=== PATIENT | female | born 1960 | race Caucasian/White ===

== ENCOUNTER 2021-03-22 10:49 | Emergency (ER) | payer BC, SELFPAY ==
[2021-03-22 10:55] VITALS: BP 141/91; PULSE 78; RESP 19; TEMP 37.1; O2SAT 98; BMI 22.7
--- NOTE | 2021-03-22 11:05 | XR_ITS ---
PROCEDURE: XR KNEE LT 3V CLINICAL INDICATION: TWISTED KNEE COMPARISON: No exams were available for comparison FINDINGS: No fracture or dislocation. No lytic or blastic change. There is normal mineralization. The joint spaces are well-preserved. No significant degenerative/arthritic changes. No erosive changes evident. Other findings:None. IMPRESSION: No acute findings. Dictated by: Sameer Al MD 03/22/2021 11:54 Sameer Al MD in [place] 03/22/2021 11:54
--- NOTE | 2021-03-22 11:40 | HMH.EDUTC ---
[facility] [place] Clinical Impression: Knee sprain Qualifiers: Encounter type: initial encounter Involved ligament of knee: unspecified ligament Laterality: left Qualified Code(s): S83.92XA - Sprain of unspecified site of left knee, initial encounter Disposition: Home, Self-Care Condition on Discharge: Good Instructions: How to Use Crutches, Knee Sprain, DI for Knee Sprain, How to Use a Knee Immobilizer Additional Instructions: *weight bearing as tolerated *RICE, Rest the extremity, Ice 15-20 minutes 3-4 times daily, Compress- wear the anthony wrap as discussed as much as possible to help reduce swelling and pain, Elevate the extremity when at rest *Knee immobilizer is for support and help control swelling, use it except in the shower. Be sure that is not to tight but not to loose either *Elevate when resting *Ibuprofen every 6-8 hours as needed for pain an inflammation. If need something more can take Tylenol in between doses of Ibuprofen to help Immediately follow up with your family doctor for new or worsening of symptoms, or no noticeable improvement over the next 3-[address] Stanford office and make appointment Return if needed Straight to ER if any life threatening symptoms Referrals: Provider,MD Ruslan [Primary Care Provider] - As needed Hans Medina MD [Staff Physician] - (Call office for appointment) Forms: Work/School Release Time of Disposition: 11:55 Medical Decision Making - Acosta Inquiry Pt receiving controlled substance: No Acosta was queried for this patient: No Vital Signs: 03/22/21 10:55 03/22/21 11:57 Temperature 98.7 F 98.7 F Temperature Source Oral Pulse Rate 78 Pulse Rate [Right Brachial] 78 Respiratory Rate 19 19 Blood Pressure 141/91 H Blood Pressure [Right Arm] 141/91 H Blood Pressure Mean [Right Arm] 107 Blood Pressure Source [Right Arm] Automatic Cuff Blood Pressure Position [Right Arm] Sitting 02 Sat by Pulse Oximetry 98 Oxygen Delivery Method Room Air - Radiology Data #1 Image(s): Knee Image Reviewed: Yes I reviewed the patient's radiology image Preliminary Findings: No Fracture [place] [facility] [place] - General Stated complaint: ao 03/19/21 injury to Lt knee Time Seen by Provider: 03/22/21 11:40 Mode of Arrival: Ambulatory Source of Information: Patient Limitations: No Limitations Description of Symptoms (Recalled from Triage Doc. by RN): PATIENT STATES SHE TWISTED HER LEFT KNEE WHILE STEPPING OFF OF PORCH MONDAY NIGHT HEENT Symptoms (Recalled from RN notes): No Resp Symptoms (Recalled from RN notes): No Skin Symptoms (Recalled from RN notes): No MS Symptoms (Recalled from RN notes): Yes Functional Status (Recalled from RN notes): WNL - History of Present Illness Provider Complaint: Patient states that she was stepping off her steps on Monday when she twisted her left knee States that she felt like something pulled in the back of her knee States that she has had pain in her left knee ever since when she moves it certain ways and feels like it is going to give out on her - Related Data Home Medications Medication Instructions Recorded Confirmed No Known Home Medications 03/22/21 03/22/21 Allergies Allergy/AdvReac Type Severity Reaction Status Date / Time No Known Allergies Allergy Verified 03/22/21 11:20 - Worker's Comp Is this a Worker's Comp case?: No [facility] History - Hepatitis A Screen Drug use history?: No High risk sexual behaviors?: No History of sexually transmitted infection?: No Currently employed?: No Childcare worker?: No Do you have indoor plumbing?: Yes Do you have electricity?: Yes Attestation statement:: This patient has been screened for Hepatitis A risk factors. I have reviewed the patient's past medical history: Yes - Social History Smoking Status: Current every day smoker Tobacco Type: cigarettes # Packs/Day (cigarettes): 1 Alcohol Intake: never Occupational Status: other ROS Obtained: Yes All systems re
[2021-03-22 11:57] VITALS: BP 141/91; PULSE 78; RESP 19; TEMP 37.1; O2SAT 98
== END 2021-03-22 12:15 | disposition home or self-care (01) ==
PROVIDERS: Emergency Provider Nurse Practitioner
DX: S83.92XA Sprain of unspecified site of left knee, initial encounter (principal); X50.1XXA Overexertion from prolonged static or awkward postures, initial encounter; Y92.018 Other place in single-family (private) house as the place of occurrence of the external cause; F17.210 Nicotine dependence, cigarettes, uncomplicated
CPT/HCPCS: 29505; 73562; 99202; G0463

== ENCOUNTER → 2021-07-22 17:51 | Outpatient (CLI) | payer BC, SELFPAY | PROVIDERS: Visit Provider Nurse Practitioner Family | DX: J02.0 Streptococcal pharyngitis | CPT/HCPCS: 87070; 87077; 87186 ==

== ENCOUNTER 2021-09-11 17:10 | Emergency (ER) | payer OTHER, SELFPAY ==
[2021-09-11 17:11] VITALS: BP 126/82; PULSE 102; RESP 18; TEMP 36.9; O2SAT 96; BMI 22.6
[2021-09-11 18:00] LABS: Basophils # 0.2 K/mm3 (0-0.2); Basophils % 1.7 % (0.1-2.0); Eosinophils # 0.2 K/mm3 (0.0-0.4); Eosinophils % 1.6 % (0.1-12.0); Hematocrit 47.8 % (37.0-47.0); Hemoglobin 16.4 g/dL (12.2-16.2); Lymphocytes # 2.7 K/mm3 (0.7-4.5); Lymphocytes % 26.6 % (10-50); Mean Corpuscular HGB Conc 34.2 g/dL (31.8-35.4); Mean Corpuscular Hemoglobin 32.9 pg (27.0-31.2); Mean Corpuscular Volume 96.2 fl (81-99); Mean Platelet Volume 8.3 fl (7.4-10.4); Monocytes # 0.5 K/mm3 (0.1-1.0); Monocytes % 4.9 % (1.7-9.3); Neutrophils # 6.6 K/mm3 (1.8-7.8); Neutrophils % 65.1 % (37.0-80.0); Platelet Count 381 K/mm3 (142-424); Red Blood Count 4.97 M/mm3 (4.20-5.40); Red Cell Distribution Width 13.5 % (11.5-17.5); White Blood Count 10.1 K/mm3 (4.8-10.8)
[2021-09-11 18:01] LABS: Alanine Aminotransferase 43 U/L (12-78); Albumin Level 5.3 g/dl (3.5-5.0); Albumin/Globulin Ratio 1.4 (1.1-1.8); Alkaline Phosphatase 93 U/L (38-126); Anion Gap 16.8 mEq/L (5-15); Aspartate Amino Transferase 54 U/L (14-36); Bilirubin,Total 1.2 mg/dl (0.2-1.3); Blood Urea Nitrogen 18 mg/dl (7-17); Calcium 10.3 mg/dl (8.4-10.2); Carbon Dioxide 25 mmol/L (22.0-30.0); Chloride 96 mmol/L (98-107); Creatinine Clearance Estimated 61 mL/min (50-200); Estimated Glomerular Filt Rate 57 ml/min (>60); GFR (African American) 69 ML/MIN (>60); Globulin 3.8 g/dL (1.3-3.2); Glucose 102 mg/dl (74-100); Potassium 3.8 mmoL/L (3.5-5.1); Sodium 134 mmol/L (136-145); Total Protein,Serum 9.1 g/dl (6.3-8.2)
[2021-09-11 18:11] VITALS: BP 128/73; PULSE 85; O2SAT 95
--- NOTE | 2021-09-11 19:36 | CT_ITS ---
PROCEDURE INFORMATION: Exam: CT Head Without Contrast Exam date and time: 09/11/2021 7:36 PM Age: 61 years old Clinical indication: Other: Hallucinations TECHNIQUE: Imaging protocol: Computed tomography of the head without contrast. Radiation optimization: All CT scans at this facility use at least one of these dose optimization techniques: automated exposure control; mA and/or kV adjustment per patient size (includes targeted exams where dose is matched to clinical indication); or iterative reconstruction. COMPARISON: No relevant prior studies available. FINDINGS: Brain: No large territorial infarction. No hemorrhage. No mass effect or midline shift. Cerebral ventricles: No ventriculomegaly. Paranasal sinuses: No fluid levels. Mastoid air cells: Visualized mastoid air cells are well aerated. Bones/joints: No acute fracture. Soft tissues: No significant soft tissue abnormality. IMPRESSION: No acute intracranial abnormality.
--- NOTE | 2021-09-11 19:36 | XR_ITS ---
PROCEDURE INFORMATION: Exam: XR Chest Exam date and time: 09/11/2021 7:36 PM Age: 61 years old Clinical indication: Cough and fever; Additional info: Fever, cough TECHNIQUE: Imaging protocol: XR of the chest. Views: 1 view. COMPARISON: No relevant prior studies available. FINDINGS: Lungs: Hyperinflation with relative lucency within the upper lung zones. No lobar consolidation. Pleural spaces: No pneumothorax. Heart/Mediastinum: No cardiomegaly. Bones/joints: Degenerative changes of the shoulders. IMPRESSION: Chronic changes without acute process.
--- NOTE | 2021-09-11 19:38 | HMH.EDGENADL ---
ED Disposition Clinical Impression: UTI (urinary tract infection), Visual hallucinations, Positive urine drug screen Disposition: Home, Self-Care Condition on Discharge: Good Instructions: Anxiety Disorders, DI for Psychosis Prescriptions: Cefdinir [Omnicef 300mg Capsule] 300 mg PO BID #20 cap Transmission Status: Pending to [id number] Quetiapine Fumarate [Seroquel 25mg tablet] 25 mg PO BID #6 tab Transmission Status: Pending to [id number] Referrals: Bailee Barcenas APRN [Primary Care Provider] - - Critical Care Critical Care Time: No Attestation: On 09/11/21, the high probability of a clinically significant, sudden or life threatening deterioration of the following system(s) required my full and direct attention, intervention and personal management. The time I documented below is in addition to time spent performing reported procedures but includes the following listed in this critical care notation. Medical Decision Making - Acosta Inquiry Pt receiving controlled substance: No Vital Signs: 09/11/21 17:11 09/11/21 18:11 Temperature 98.5 F Temperature Source Oral Pulse Rate 85 Pulse Rate [Left Radial] 102 H Respiratory Rate 18 Blood Pressure 128/73 Blood Pressure [Right Arm] 126/82 Blood Pressure Mean [Right Arm] 96 Blood Pressure Source [Right Arm] Automatic Cuff Blood Pressure Position [Right Arm] Sitting 02 Sat by Pulse Oximetry 96 95 Oxygen Delivery Method Room Air Room Air - Lab Data Lab Results 09/11/21 17:20: WBC 10.1, RBC 4.97, Hgb 16.4 H, Hct 47.8 H, MCV 96.2, MCH 32.9 H, MCHC 34.2, RDW 13.5, Plt Count 381, MPV 8.3, Neut % (Auto) 65.1, Lymph % (Auto) 26.6, Bremer % (Auto) 4.9, Eos % (Auto) 1.6, Baso % (Auto) 1.7, Neut # (Auto) 6.6, Lymph # (Auto) 2.7, Bremer # (Auto) 0.5, Eos # (Auto) 0.2, Baso # (Auto) 0.2 09/11/21 17:20: Sodium 134 L, Potassium 3.8, Chloride 96 L, Carbon Dioxide 25, Anion Gap 16.8 H, BUN 18 H, Creatinine 1.00, Estimated Creat Clear 61, Estimated GFR 57 L, Est GFR ( Amer) 69, Glucose 102 H, Calcium 10.3 H, Total Bilirubin 1.2, AST 54 H, ALT 43, Alkaline Phosphatase 93, Total Protein 9.1 H, Albumin 5.3 H, Globulin 3.8 H, Albumin/Globulin Ratio 1.4 09/11/21 17:20: Salicylates < 1.0 L, Acetaminophen < 10 L 09/11/21 17:20: Plasma/Serum Alcohol < 10 09/11/21 19:45: Urine Color Yellow, Urine Appearance Clear, Urine pH 5.5, Ur Specific Worthington 1.010, Urine Protein Negative, Urine Glucose (UA) Negative, Urine Ketones 1+, Urine Blood Negative, Urine Nitrate Negative, Urine Bilirubin Negative, Urine Urobilinogen 0.2, Ur Leukocyte Esterase Trace, Urine RBC Occasional, Urine WBC 5-10, Ur Squamous Epith Cells 3-5, Urine Bacteria 2+ 09/11/21 19:45: Urine Opiates Screen Negative, Urine Methadone Screen Negative, Ur Barbituates Screen Negative, Ur Phencyclidine Scrn Negative, Ur Amphetamines Screen Positive H, U Benzodiazepines Scrn Negative, Urine Cocaine Screen Negative, U Marijuana (THC) Screen Positive H Result diagrams: 09/11/21 17:20 09/11/21 17:20 Orders (Tests/Meds): ED MEDICATIONS Generic Name Dose Route Start Last Admin Trade Name Freq PRN Reason Stop Dose Admin Lactated Ringer's 500 mls @ 999 mls/hr 09/11/21 19:45 09/11/21 20:09 Lactated Ringer's 1000 Ml Bag IV 09/11/21 20:15 999 mls/hr .Q31M KATHI Administration Ceftriaxone Sodium 1 gm/ 50 mls @ 100 mls/hr 09/11/21 21:15 09/11/21 21:07 Sodium Chloride IV 09/25/21 21:14 100 mls/hr Q24H KATHI Administration Discontinued Medications Generic Name Dose Route Start Last Admin Trade Name Freq PRN Reason Stop Dose Admin Hydroxyzine Pamoate 25 mg 09/11/21 19:36 09/11/21 20:09 Hydroxyzine Pamoate 25mg Capsule PO 09/11/21 19:37 25 mg ONCE ONE Administration Quetiapine Fumarate 25 mg 09/12/21 09:00 Quetiapine 25mg Tablet PO 10/12/21 08:59 BID KATHI Quetiapine Fumarate 25 mg 09/11/21 21:12 09/11/21 21:12 Quetiapine 25mg Tablet PO 09/11/21 21:13
[2021-09-11 19:56] LABS: Microscopic, Urine URINE MICROSCOPIC (MICROSCOPIC)
[2021-09-11 20:02] LABS: Appearance,Urine CLEAR (Clear); Bilirubin,Urine Negative (Negative); Blood, Urine Negative (Negative); Color,Urine YELLOW (Yellow); Glucose,Urine (UA) Negative (Negative); Ketones,Urine 1+ (Negative); Leukocyte Esterase,Urine TRACE (Negative); Nitrate,Urine Negative (Negative); PH,Urine 5.5 (5.0-8.5); Protein,Urine Negative (Negative); Urobilinogen,Urine 0.2 EU/dl (0.2)
[2021-09-11 20:10] LABS: Bacteria,Urine 2+ /lpf; RBC,Urine Occasional #/hpf (0-3)
[2021-09-11 20:15] LABS: Barbiturates Screen,Urine Negative ng/ml (<200)
[2021-09-11 20:16] LABS: Benzodiazepines Screen,Urine Negative ng/ml (<200)
[2021-09-11 20:17] LABS: Cannabinoid Screen,Urine Positive ng/ml (<50); Cocaine Screen,Urine Negative ng/ml (<300)
[2021-09-11 20:18] LABS: Methadone Screen,Urine Negative ng/ml (<300)
[2021-09-11 20:19] LABS: Opiate Screen,Urine Negative ng/ml (<300); Phencyclidine Screen,Urine Negative ng/ml (<25)
[2021-09-11 20:57] LABS: Amphetamine/Metha Screen,Urine Positive ng/ml (<1000)
--- NOTE | 2021-09-11 20:57 | PC.NURSE ---
dr grimaldo on phone with dr yap @ this time
[2021-09-11 21:32] LABS: Acetaminophen < 10 ug/ml (10-30); Ethyl Alcohol < 10 mg/dl (0-10); Salicylate < 1.0 mg/dL (2.0-20.0)
[2021-09-11 21:57] VITALS: BP 127/70; PULSE 85; RESP 20; TEMP 36.8; O2SAT 98
== END 2021-09-11 22:01 | disposition home or self-care (01) ==
PROVIDERS: Emergency Provider Student in an Organized Health Care Education/Training Program; PCP Nurse Practitioner Family
DX: N39.0 Urinary tract infection, site not specified (principal); R44.1 Visual hallucinations; F12.951 Cannabis use, unspecified with psychotic disorder with hallucinations; F17.210 Nicotine dependence, cigarettes, uncomplicated; R05.9 Cough, unspecified
CPT/HCPCS: 70450; 71045; 80053; 80305; 80329; 81001; 85025; 87086; 96365; 96366; 99282; J0696

== ENCOUNTER → 2022-03-18 06:18 | Outpatient (CLI) | payer OTHER, SELFPAY ==
[2022-03-17 18:56] LABS: Basophils # 0.1 K/mm3 (0-0.2); Basophils % 1.3 % (0.1-2.0); Eosinophils # 0.2 K/mm3 (0.0-0.4); Eosinophils % 2.3 % (0.1-12.0); Hematocrit 44.5 % (37.0-47.0); Hemoglobin 14.3 g/dL (12.2-16.2); Lymphocytes # 2.6 K/mm3 (0.7-4.5); Lymphocytes % 30.8 % (10-50); Mean Corpuscular HGB Conc 32.1 g/dL (31.8-35.4); Mean Corpuscular Volume 99.7 fl (81-99); Mean Platelet Volume 9.7 fl (7.4-10.4); Monocytes # 0.5 K/mm3 (0.1-1.0); Monocytes % 5.3 % (1.7-9.3); Neutrophils # 5.1 K/mm3 (1.8-7.8); Neutrophils % 60.3 % (37.0-80.0); Platelet Count 413 K/mm3 (142-424); Red Blood Count 4.46 M/mm3 (4.20-5.40); Red Cell Distribution Width 13.7 % (11.5-17.5); White Blood Count 8.5 K/mm3 (4.8-10.8)
[2022-03-17 19:04] LABS: Alanine Aminotransferase 23 U/L (12-78); Albumin Level 4.1 g/dl (3.5-5.0); Albumin/Globulin Ratio 1.4 (1.1-1.8); Alkaline Phosphatase 97 U/L (38-126); Anion Gap 8.8 mEq/L (5-15); Aspartate Amino Transferase 28 U/L (14-36); Bilirubin,Total 0.8 mg/dl (0.2-1.3); Blood Urea Nitrogen 12 mg/dl (7-17); Calcium 9.6 mg/dl (8.4-10.2); Carbon Dioxide 26 mmol/L (22.0-30.0); Chloride 108 mmol/L (98-107); Estimated Glomerular Filt Rate 86 ml/min (>60); GFR (African American) 104 ML/MIN (>60); Globulin 2.9 g/dL (1.3-3.2); Glucose 104 mg/dl (74-100); Potassium 4.8 mmoL/L (3.5-5.1); Sodium 138 mmol/L (136-145)
[2022-03-17 19:08] LABS: Amphetamine/Metha Screen,Urine Negative ng/ml (<1000); Barbiturates Screen,Urine Negative ng/ml (<200)
[2022-03-17 19:09] LABS: Benzodiazepines Screen,Urine Negative ng/ml (<200); Cannabinoid Screen,Urine Negative ng/ml (<50)
[2022-03-17 19:10] LABS: Cocaine Screen,Urine Negative ng/ml (<300)
[2022-03-17 19:11] LABS: Methadone Screen,Urine Negative ng/ml (<300); Opiate Screen,Urine Negative ng/ml (<300)
[2022-03-17 19:12] LABS: Phencyclidine Screen,Urine Negative ng/ml (<25)
[2022-03-17 19:35] LABS: Thyroid Stimulating Hormone 3.62 uIU/mL (0.465-4.68)
== END ==
PROVIDERS: PCP Internal Medicine Adolescent Medicine; Visit Provider Internal Medicine Adolescent Medicine
DX: R79.89 Other specified abnormal findings of blood chemistry (principal); F30.8 Other manic episodes
CPT/HCPCS: 80053; 80305; 84443; 85025

== ENCOUNTER → 2022-04-11 06:24 | Outpatient (CLI) | payer OTHER, SELFPAY ==
[2022-04-11 20:50] LABS: Barbiturates Screen,Urine Negative ng/ml (<200); Benzodiazepines Screen,Urine Negative ng/ml (<200)
[2022-04-11 20:51] LABS: Amphetamine/Metha Screen,Urine Negative ng/ml (<1000)
[2022-04-11 20:52] LABS: Cocaine Screen,Urine Negative ng/ml (<300); Methadone Screen,Urine Negative ng/ml (<300)
[2022-04-11 20:53] LABS: Cannabinoid Screen,Urine Negative ng/ml (<50); Opiate Screen,Urine Negative ng/ml (<300)
[2022-04-11 20:54] LABS: Phencyclidine Screen,Urine Negative ng/ml (<25)
== END ==
LOC: LAB.DROPOF 04-12 06:25
PROVIDERS: PCP Internal Medicine Adolescent Medicine; Visit Provider Internal Medicine Adolescent Medicine
DX: R82.5 Elevated urine levels of drugs, medicaments and biological substances (principal)
CPT/HCPCS: 80305

== ENCOUNTER → 2022-05-04 19:23 | Outpatient (CLI) | payer OTHER, SELFPAY ==
[2022-05-04 20:14] LABS: Amphetamine/Metha Screen,Urine Negative ng/ml (<1000); Benzodiazepines Screen,Urine Negative ng/ml (<200)
[2022-05-04 20:15] LABS: Barbiturates Screen,Urine Negative ng/ml (<200); Cannabinoid Screen,Urine Negative ng/ml (<50)
[2022-05-04 20:16] LABS: Cocaine Screen,Urine Negative ng/ml (<300)
[2022-05-04 20:17] LABS: Methadone Screen,Urine Negative ng/ml (<300); Opiate Screen,Urine Negative ng/ml (<300)
[2022-05-04 20:18] LABS: Phencyclidine Screen,Urine Negative ng/ml (<25)
== END ==
PROVIDERS: PCP Internal Medicine Adolescent Medicine; Visit Provider Internal Medicine Adolescent Medicine
DX: R82.5 Elevated urine levels of drugs, medicaments and biological substances (principal)
CPT/HCPCS: 80305

== ENCOUNTER → 2022-05-31 13:47 | Outpatient (CLI) | payer OTHER, SELFPAY ==
--- NOTE | 2022-05-31 13:54 | MM_ITS ---
PROCEDURE INFORMATION: Exam: US Right Breast, Complete MG Bilateral Diagnostic Breast Tomosynthesis Exam date and time: 05/31/2022 1:46 PM Age: 61 years old Clinical indication: Concern for lump in the right upper outer quadrant. This is her 1st mammogram. TECHNIQUE: Imaging protocol: Complete ultrasound of all four quadrants of the Right breast and the retroareolar regions, including ultrasound of the axilla when performed. Bilateral Diagnostic tomosynthesis and 2D mammography including computer-aided detection (CAD) when performed. Unilateral or bilateral exam. Triangular marker placed at the right clinical lump. COMPARISON: No relevant prior studies available. FINDINGS: MAMMOGRAPHY: Breast composition: The breasts are heterogeneously dense, which may obscure small masses. Mass: Spiculated, approximately 1.0 cm mass with architectural distortion corresponds to the palpable finding in the right breast at 11-12 o'clock posterior 3rd. Architectural distortion: None. Calcifications: No suspicious calcifications. Asymmetric density: None. Skin thickening: None. Axillary adenopathy: None. ULTRASOUND: Right sonography, all 4 quadrants retroareolar and axilla. Corresponding to the palpable and mammographic mass at 11 o'clock 8 cm from the nipple, spiculated solid shadowing mass measuring 1.3 by 1.4 x 1.4 cm. Mild prominence of the retroareolar ducts. Sonographically unremarkable right axillary lymph node. IMPRESSION: Findings highly suspicious for breast cancer corresponding to the palpable finding in the right breast at 11 o'clock, suggest ultrasound-guided biopsy with correlation to ensure that the sonographically placed clip corresponds to the mammographic mass. ASSESSMENT: BI-RADS Category 5: Highly suggestive of malignancy
== END ==
PROVIDERS: PCP Family Medicine; Visit Provider Family Medicine
DX: N63.11 Unspecified lump in the right breast, upper outer quadrant (principal)
CPT/HCPCS: 76641; 77062; 77066; G0279

== ENCOUNTER → 2022-06-09 07:59 | Outpatient (CLI) | payer OTHER, SELFPAY ==
--- NOTE | 2022-06-09 08:07 | US_ITS ---
FINAL REPORT CLINICAL HISTORY: BREAST NODULE UOQ , mass right upper outer quadrant FINDINGS: ULTRASOUND-GUIDED RIGHT BREAST CORE BIOPSY TECHNIQUE: Limited images were obtained to localize region of interest. The right breast was prepped in a routine sterile fashion and locally anesthetized with 1% lidocaine. Standard written informed consent was obtained. The biopsy needle was positioned within the outer periphery of the lesion. A total of 4 passes were made with a 18 gauge core biopsy needle. A biopsy marker clip was deployed in satisfactory position. Postbiopsy mammogram showed postbiopsy changes with clip in satisfactory position. Procedure was well tolerated . CONCLUSION: 1. Technically successful ultrasound guided core biopsy of right breast lesion as above. 2. Biopsy marker clip deployed RECOMMENDATION: Given findings of invasive carcinoma on histopathology, surgical and medical oncology referral recommended Authenticated and ERN
--- NOTE | 2022-06-09 08:08 | MM_ITS ---
FINAL REPORT CLINICAL HISTORY: s/p rt biopsy clip placement. Mass right upper outer quadrant FINDINGS: MAMMOGRAM RIGHT TECHNIQUE: Standard digital 2-D views COMPARISON: Recent diagnostic mammogram DENSITY: There are scattered areas of fibroglandular density FINDINGS: Post biopsy marker clip is noted to be in satisfactory position. Postbiopsy changes are noted. Biopsy marker clip is noted associated with the partially obscured spiculated mass. IMPRESSION: Biopsy marker clip in good position RECOMMENDATION: Given findings of invasive carcinoma on histopathology, surgical and medical oncology referral recommended Authenticated and ERN
== END ==
LOC: RAD 08:00
PROVIDERS: PCP Family Medicine; Visit Provider Family Medicine
DX: N63.10 Unspecified lump in the right breast, unspecified quadrant (principal); R92.8 Other abnormal and inconclusive findings on diagnostic imaging of breast
CPT/HCPCS: 19083; 77065

== ENCOUNTER → 2022-08-29 20:39 | Outpatient (CLI) | payer OTHER, SELFPAY ==
[2022-08-29 21:01] LABS: Basophils # 0.1 K/mm3 (0-0.2); Basophils % 1.4 % (0.1-2.0); Eosinophils # 0.2 K/mm3 (0.0-0.4); Eosinophils % 2.2 % (0.1-12.0); Hematocrit 45.5 % (37.0-47.0); Hemoglobin 14.7 g/dL (12.2-16.2); Lymphocytes # 3.4 K/mm3 (0.7-4.5); Mean Corpuscular HGB Conc 32.3 g/dL (31.8-35.4); Mean Platelet Volume 8.8 fl (7.4-10.4); Monocytes # 0.5 K/mm3 (0.1-1.0); Monocytes % 4.8 % (1.7-9.3); Neutrophils # 5.3 K/mm3 (1.8-7.8); Neutrophils % 55.6 % (37.0-80.0); Platelet Count 426 K/mm3 (142-424); Red Blood Count 4.59 M/mm3 (4.20-5.40); White Blood Count 9.5 K/mm3 (4.8-10.8)
[2022-08-29 21:33] LABS: Chloride 103 mmol/L (98-107); Potassium 4.9 mmoL/L (3.5-5.1); Sodium 138 mmol/L (136-145)
[2022-08-29 21:35] LABS: Blood Urea Nitrogen 8 mg/dl (7-17); Estimated Glomerular Filt Rate 64 ml/min (>60); GFR (African American) 77 ML/MIN (>60)
[2022-08-29 21:36] LABS: Alanine Aminotransferase 28 U/L (12-78); Albumin Level 4.7 g/dl (3.5-5.0); Albumin/Globulin Ratio 1.5 (1.1-1.8); Alkaline Phosphatase 91 U/L (38-126); Anion Gap 12.9 mEq/L (5-15); Aspartate Amino Transferase 33 U/L (14-36); Bilirubin,Total 0.9 mg/dl (0.2-1.3); Calcium 9.6 mg/dl (8.4-10.2); Carbon Dioxide 27 mmol/L (22.0-30.0); Globulin 3.2 g/dL (1.3-3.2); Glucose 111 mg/dl (74-100); Total Protein,Serum 7.9 g/dl (6.3-8.2)
== END ==
PROVIDERS: PCP Internal Medicine; Visit Provider Internal Medicine
DX: C50.411 Malignant neoplasm of upper-outer quadrant of right female breast (principal); Z17.0 Estrogen receptor positive status [ER+]
CPT/HCPCS: 80053; 85025

== ENCOUNTER 2022-09-10 09:18 | Emergency (ER) | payer OTHER, SELFPAY ==
[2022-09-10] VITALS (20 sets, daily range): BP systolic 39–131; BP diastolic 16–89; PULSE 37–129; RESP 17–37; TEMP 36.6–36.9; O2SAT 90–100; BMI 23.3
[2022-09-10 09:49] LABS: Chloride 99 mmol/L (98-107); Eosinophils % 0.7 % (0.1-12.0); Hematocrit 37.9 % (37.0-47.0); Hemoglobin 13.4 g/dL (12.2-16.2); Lymphocytes # 0.3 K/mm3 (0.7-4.5); Lymphocytes % 73.8 % (10-50); Mean Corpuscular HGB Conc 35.4 g/dL (31.8-35.4); Mean Corpuscular Hemoglobin 33.9 pg (27.0-31.2); Neutrophils # 0.1 K/mm3 (1.8-7.8); Neutrophils % 19.6 % (37.0-80.0); Platelet Count 276 K/mm3 (142-424); Red Blood Count 3.95 M/mm3 (4.20-5.40); Red Cell Distribution Width 13.3 % (11.5-17.5)
[2022-09-10 09:50] LABS: Sodium 131 mmol/L (136-145)
[2022-09-10 09:52] LABS: Alanine Aminotransferase 90 U/L (12-78); Alkaline Phosphatase 129 U/L (38-126); Aspartate Amino Transferase 54 U/L (14-36); Bilirubin,Total 1.5 mg/dl (0.2-1.3); Blood Urea Nitrogen 9 mg/dl (7-17); Creatinine Clearance Estimated 75 mL/min (50-200); Estimated Glomerular Filt Rate 73 ml/min (>60); GFR (African American) 89 ML/MIN (>60)
[2022-09-10 09:53] LABS: Albumin Level 4.1 g/dl (3.5-5.0); Albumin/Globulin Ratio 1.4 (1.1-1.8); Calcium 8.8 mg/dl (8.4-10.2); Carbon Dioxide 20 mmol/L (22.0-30.0); Globulin 2.9 g/dL (1.3-3.2); Glucose 244 mg/dl (74-100)
--- NOTE | 2022-09-10 09:55 | PC.NURSE ---
lab reports potassium of 3. notified
[2022-09-10 10:06] LABS: White Blood Count 0.4 K/mm3 (4.8-10.8)
[2022-09-10 10:07] LABS: MANUAL DIFFERENTIAL MANUAL DIFFERENTIAL (MANUAL DIFF)
--- NOTE | 2022-09-10 10:10 | CT_ITS ---
PROCEDURE INFORMATION: Exam: CT Abdomen And Pelvis With Contrast Exam date and time: 09/10/2022 10:22 AM Age: 62 years old Clinical indication: Abdominal pain; Generalized; Additional info: Pain, leukopenia TECHNIQUE: Imaging protocol: Computed tomography of the abdomen and pelvis with contrast. Radiation optimization: All CT scans at this facility use at least one of these dose optimization techniques: automated exposure control; mA and/or kV adjustment per patient size (includes targeted exams where dose is matched to clinical indication); or iterative reconstruction. Contrast material: ISOVUE; Contrast volume: 75 ml; Contrast route: IV; COMPARISON: CR XR CHEST PORTABLE 09/11/2021 7:53 PM FINDINGS: Liver: Normal. No mass. Gallbladder and bile ducts: Normal. No calcified stones. No ductal dilation. Pancreas: Normal. No ductal dilation. Spleen: Normal. No splenomegaly. Adrenal glands: Normal. No mass. Kidneys and ureters: Normal. No hydronephrosis. Stomach and bowel: Massive bowel wall thickening within the terminal ileum, cecum, and ascending colon. Cecal wall measures 2 cm. Prominent adjacent inflammatory changes. Given history of leukopenia, neutropenic enterocolitis (typhlitis) is highly concerning. Alternatively, inflammatory bowel disease such as Crohn's should be considered. Moderate distention of stomach with fluid, and fluid within mildly distended mid esophagus. No proximal small bowel obstruction. Appendix: No evidence of appendicitis. Intraperitoneal space: Mild abdominal and pelvic ascites. Vasculature: Unremarkable. No abdominal aortic aneurysm. Lymph nodes: Unremarkable. No enlarged lymph nodes. Urinary bladder: Unremarkable as visualized. Reproductive: Unremarkable as visualized. Bones/joints: Unremarkable. No acute fracture. Soft tissues: Unremarkable. IMPRESSION: 1. Massive bowel wall thickening within the terminal ileum, cecum, and ascending colon. Cecal wall measures 2 cm. Prominent adjacent inflammatory changes. Given history of leukopenia, neutropenic enterocolitis (typhlitis) is highly concerning. Alternatively, inflammatory bowel disease such as Crohn's should be considered. 2. Moderate distention of stomach with fluid, and fluid within mildly distended mid esophagus. 3. Mild abdominal and pelvic ascites.
--- NOTE | 2022-09-10 10:10 | CT_ITS ---
PROCEDURE INFORMATION: Exam: CT Chest With Contrast; Diagnostic Exam date and time: 09/10/2022 10:22 AM Age: 62 years old Clinical indication: Pain; Chest pressure; Additional info: Pain, leukopenia TECHNIQUE: Imaging protocol: Diagnostic computed tomography of the chest with contrast. Radiation optimization: All CT scans at this facility use at least one of these dose optimization techniques: automated exposure control; mA and/or kV adjustment per patient size (includes targeted exams where dose is matched to clinical indication); or iterative reconstruction. Contrast material: ISOVUE; Contrast volume: 75 ml; Contrast route: IV; COMPARISON: CR XR CHEST PORTABLE 09/11/2021 7:53 PM FINDINGS: Thyroid: Heterogeneous thyroid gland, with rim enhancing nodule in the left lobe measuring 8 mm. Nonemergent ultrasound recommended. Lungs: Unremarkable. No consolidation. No masses. Pleural spaces: Unremarkable. No pneumothorax. No pleural effusion. Heart: Unremarkable. No cardiomegaly. No pericardial effusion. Mediastinal space: Fluid-filled and distended mid esophagus, with fluid distended stomach partially visualized. Lymph nodes: Coarsely calcified subcarinal lymph node. No lymphadenopathy identified. Vasculature: Unremarkable. No aortic aneurysm. Bones/joints: Unremarkable. No acute fracture. Soft tissues: Biopsy markers in the right breast. IMPRESSION: 1. Fluid-filled and distended mid esophagus, with fluid distended stomach partially visualized. 2. Heterogeneous thyroid gland, with rim enhancing nodule in the left lobe measuring 8 mm. Nonemergent ultrasound recommended. COMMENTS: Consistent with the [employer]'s Incidental Findings Committee white paper (J Am Dominik Radiol 2015): In patients aged 35 years and older with an incidental thyroid nodule equal to or greater than 1.[address], MRI or extrathyroidal US, further evaluation with dedicated thyroid US is recommended for patients with normal life expectancy and without comorbidities. For smaller nodules without suspicious features, no further evaluation or follow up is recommended.
--- NOTE | 2022-09-10 10:30 | HMH.EDGENADL ---
Discharge Plan Disposition Patient Disposition: Xfer Short-Term Hosp Condition: Fair Prescriptions Prescriptions: No Action escitalopram oxalate 10 mg tablet 10 mg PO DAILY nicotine [Nicoderm CQ] 21 mg/24 hr patch 24 hour 1 patch transdermal DAILY Qty: 28 0RF sulfamethoxazole-trimethoprim 800-160 mg tablet 1 tab PO BID Qty: 20 0RF codeine-guaifenesin 10-100 mg/5 mL liquid 10 ml PO Q4-6H PRN (Reason: cough) Qty: 120 3RF Referrals Follow up/Referrals: Serjio Hope MD [Primary Care Provider] - See instructions Clinical Impressions Clinical Impression: Neutropenia, Abdominal pain, Enterocolitis Instructions Patient Instructions: DI for Acute Abdominal Pain Discharge ED Provider: Chidi Lyle General Adult HPI General Chief complaint: Abdominal Pain Stated complaint: Kidney pain Time Seen by Provider: 09/10/22 09:35 Mode of Arrival: Ambulatory Source of Information: Patient and Relative Limitations: No Limitations Description of Symptoms (Recalled from ER Triage Doc. by RN): c/o lower back pain that goes into her stomach that started last night. Per daughter pt states that her kidney are shutting down. Daughter states that pt stopped drinking beer before her first chemo tx on Sep 02. Dx with breast CA, 1ml of urine noted in bladder via bladder scanner. History of Present Illness HPI narrative: 62yo F presents to the emergency department secondary to diffuse abdominal pain and right flank pain that began in the middle of the night. Denies previous episodes similar. Patient had right breast lumpectomy with lymph node dissection in June and recently underwent her first round of chemotherapy on September 02. Denies fever. Denies nausea or vomiting. Denies history of kidney stones Related Data Home Medications Medication Instructions Recorded Confirmed escitalopram oxalate 10 mg tablet 10 mg PO DAILY depression 06/01/22 08/09/22 Previous Rx's Medication Instructions Recorded nicotine 21 mg/24 hr daily 1 patch transdermal DAILY #28 ea 08/05/22 transdermal patch (Nicoderm CQ) codeine 10 mg-guaifenesin 100 mg/5 10 ml PO Q4-6H PRN cough #120 mL 08/09/22 mL oral liquid sulfamethoxazole 800 1 tab PO BID #20 tabs 08/09/22 mg-trimethoprim 160 mg tablet Allergies Allergy/AdvReac Type Severity Reaction Status Date / Time No Known Allergies Allergy Verified 08/09/22 15:04 PFSH PFSH Disclaimer: The information contained in this section may have been updated after the patient was seen, as this information can be updated by other users. Medical History Invasive ductal carcinoma of breast Positive urine drug screen Social History Smoking Status: Current every day smoker tobacco type: cigarettes packs per day: 1 alcohol intake: current substance use type: former substance user, marijuana and crack/cocaine current occupational status: employed ([employer]) Travel in the last 8 weeks: None household members: none housing: house ROS Obtained: Yes Systems reviewed as appropriate & no additional complaints except as documented Physical Exam General General appearance: alert Comment: Appears uncomfortable Head Head exam: atraumatic Eye Eye exam: Present normal appearance ENT ENT exam: Present normal exam Neck Neck exam: Present normal inspection Chest Chest inspection: Present normal inspection Respiratory Respiratory exam: Present normal lung sounds bilaterally; Absent respiratory distress, wheezes, stridor or accessory muscle use Cardiovascular Cardiovascular exam: Present regular rate and normal rhythm Abdominal Exam Abdominal exam: Present soft, tenderness and normal bowel sounds; Absent distention, guarding, rebound or rigidity Extremities Exam Extremities exam: Present normal inspection and full ROM Back Exam Back exam: Present normal inspect
[2022-09-10 10:33] LABS: Lymphocytes % 80 % (10-50); Monocytes % 7 % (2-9); Neutrophils % 13 % (42-76); Total Cells Counted 15
[2022-09-10 10:34] LABS: RBC Morphology Normal
[2022-09-10 10:35] LABS: Platelet Estimate Normal
--- NOTE | 2022-09-10 11:05 | PC.NURSE ---
Pt went to the restroom and produced a urine sample
[2022-09-10 11:08] LABS: Microscopic, Urine URINE MICROSCOPIC (MICROSCOPIC)
[2022-09-10 11:15] LABS: Appearance,Urine CLEAR (Clear); Bilirubin,Urine Negative (Negative); Blood, Urine TRACE-L (Negative); Color,Urine YELLOW (Yellow); Glucose,Urine (UA) 1+ (Negative); Ketones,Urine Negative (Negative); Leukocyte Esterase,Urine Negative (Negative); Nitrate,Urine Negative (Negative); Protein,Urine TRACE (Negative); Urobilinogen,Urine 0.2 EU/dl (0.2)
--- NOTE | 2022-09-10 11:18 | PC.NURSE ---
placed call for transfer dr crawford on with Dr Stevens.
--- NOTE | 2022-09-10 11:24 | PC.NURSE ---
spoke with [facility]. states she has been placed on a high priority waiting list. also reports wants an ng tube
[2022-09-10 11:30] LABS: WBC,Urine Occasional #/hpf (0-3)
--- NOTE | 2022-09-10 11:35 | PC.NURSE ---
dr on with [facility]
--- NOTE | 2022-09-10 13:33 | PC.NURSE ---
called [facility] for update still no bed available they will call if any changes
--- NOTE | 2022-09-10 14:28 | PC.NURSE ---
verbal order for 0.5mg od Dilaudid by
[2022-09-10 15:46] LABS: Adenovirus,PCR Not Detected (NotDetected); Bordetella Pertussis Not Detected (NotDetected); Chlamydophila Pneumoniae, PCR Not Detected (NotDetected); Coronavirus 19, PCR Not Detected (NotDetected); Coronavirus 229E Not Detected (NotDetected); Coronavirus NL63 Not Detected (NotDetected); Coronavirus OC43 Not Detected (NotDetected); Coronovirus HKU1,PCR Not Detected (NotDetected); Human Metapneumovirus Not Detected (NotDetected); Influenza A, PCR Not Detected (NotDetected); Influenza AH1, 2009 Not Detected (NotDetected); Influenza AH1, PCR Not Detected (NotDetected); Influenza AH3,PCR Not Detected (NotDetected); Influenza B, PCR Not Detected (NotDetected); Mycoplasma Pneumoniae, PCR Not Detected (NotDetected); Parainfluenza 1, PCR Not Detected (NotDetected); Parainfluenza 2, PCR Not Detected (NotDetected); Parainfluenza 3, PCR Not Detected (NotDetected); Parainfluenza 4, PCR Not Detected (NotDetected); Respiratory Syncytial Virus Not Detected (NotDetected)
--- NOTE | 2022-09-10 16:17 | PC.NURSE ---
placed call to [facility] for follow up on bed placement they advised bed is being cleaned and in process, they should be calling back by end of shift.
--- NOTE | 2022-09-10 17:01 | XR_ITS ---
PROCEDURE INFORMATION: Exam: XR Chest Exam date and time: 09/10/2022 5:19 PM Age: 62 years old Clinical indication: Other: Hypoxia TECHNIQUE: Imaging protocol: Radiologic exam of the chest. Views: 1 view. COMPARISON: CT CHEST W CON 09/10/2022 10:22 AM FINDINGS: Lungs: Unremarkable. No consolidation. Pleural spaces: Unremarkable. No pleural effusion. No pneumothorax. Heart/Mediastinum: Unremarkable. No cardiomegaly. Bones/joints: Unremarkable. Tubes: Enteric tube is past gastroesophageal junction. Tube tip is not visualized. IMPRESSION: No acute findings. Enteric tube grossly in place.
--- NOTE | 2022-09-10 17:01 | XR_ITS ---
PROCEDURE INFORMATION: Exam: XR Abdomen Exam date and time: 09/10/2022 5:19 PM Age: 62 years old Clinical indication: Device placement; Gi device; Nasogastric tube; Additional info: Ng tube placement TECHNIQUE: Imaging protocol: Radiologic exam of the abdomen. Views: Frontal supine view of the abdomen. 1 View. COMPARISON: CT ABDOMEN PELVIS W CON 09/10/2022 10:22 AM FINDINGS: Gastrointestinal tract: Normal. No bowel dilation. Bones/joints: Unremarkable. Tubes:: Nasogastric tube tip is projected over gastric body. IMPRESSION: No acute findings. Nasogastric tube grossly in place.
[2022-09-10 17:03] LABS: Rhinovirus/Enterovirus Detected (NotDetected)
--- NOTE | 2022-09-10 17:05 | PC.NURSE ---
Pt was transferring with Celia Bowles wireless sales manager from the [facility] to the bed when wireless sales manager called out for me, once entered pt was having a near syncopal episode, pt bautista in color, A&O x4 at this time, able to transfer to bed with assistance, Pt stating that she is thirsty. at bs.
--- NOTE | 2022-09-10 17:11 | PC.NURSE ---
pt daughter came to desk advising pt felt syncopal episode , pt assessed she is hypotensive, dr advised he was at bedside. [facility] called with a room advised them she had declined and pt is now going to [facility].
--- NOTE | 2022-09-10 17:21 | PC.NURSE ---
[facility] called, they are to call back with weather check
--- NOTE | 2022-09-10 17:24 | PC.NURSE ---
[facility] advised 20 min eta
--- NOTE | 2022-09-10 17:30 | PC.NURSE ---
verbally ordered levophed for low bp for MAP of 21, at bs
[2022-09-10 17:39] LABS: ABG Base Excess -14.2 mmol/L (-2.4-2.3); ABG HCO3 12.3 mmhg (22.0-26.0); ABG Oxygen Saturation 97 % (90-100); ABG PCO2 26.2 mmhg (35.0-45.0); ABG PH 7.29 mmol/L (7.35-7.45); ABG PO2 99.3 mmhg (80-100); ABG TCO2 13.1 mmhg (23-27); Oxygen 2.5 %; Source LEFT FEMORAL
--- NOTE | 2022-09-10 17:46 | PC.NURSE ---
at bedside preparing to insert central line
--- NOTE | 2022-09-10 18:04 | XR_ITS ---
PROCEDURE INFORMATION: Exam: XR Chest Exam date and time: 09/10/2022 6:18 PM Age: 62 years old Clinical indication: Device placement; Other: Central line placement TECHNIQUE: Imaging protocol: Radiologic exam of the chest. Views: 1 view. COMPARISON: CR XR CHEST PORTABLE 09/10/2022 5:19 PM FINDINGS: Tubes, catheters and devices: Right internal jugular central line tip is projected at atrial caval junction. No pneumothorax. Enteric tube past gastroesophageal junction tip itself not visualized. Lungs: Unremarkable. No consolidation. Pleural spaces: No pleural effusion. No pneumothorax. Heart/Mediastinum: Unremarkable. No cardiomegaly. Bones/joints: Unremarkable. IMPRESSION: Central line and enteric tubes grossly in place. No acute intrathoracic findings identified.
--- NOTE | 2022-09-10 18:07 | P.PCN_ITS ---
[facility] Procedure Note Date: 09/10/22 Time: 18:00 Procedure Note:: Patient hypotensive and not recovering with fluids. Decision made to put in a central line. Informed consent obtained from the patient. Right neck prepped and draped in sterile fashion. Ultrasound probe covered with sterile probe cover and utilized for placement of right IJ central venous catheter. No complications. Patient tolerated procedure well. Post procedure x-ray obtained and shows good placement of central venous line with no sign of pneumothorax.
--- NOTE | 2022-09-10 18:20 | PC.NURSE ---
report called to Meghan BAH at ER
--- NOTE | 2022-09-10 18:31 | PC.NURSE ---
pt left ED with [facility] at this time
--- NOTE | 2022-09-10 18:36 | PC.NURSE ---
Suction container from stomach contents was a volume of 500ml out.
== END 2022-09-10 18:35 | disposition short-term general hospital (02) ==
PROVIDERS: Emergency Provider Family Medicine; PCP Family Medicine
DX: R10.9 Unspecified abdominal pain (principal); D70.9 Neutropenia, unspecified; K52.9 Noninfective gastroenteritis and colitis, unspecified; F17.210 Nicotine dependence, cigarettes, uncomplicated; C50.919 Malignant neoplasm of unspecified site of unspecified female breast; Z92.21 Personal history of antineoplastic chemotherapy
CPT/HCPCS: 71045; 71260; 74018; 74177; 80053; 81001; 82803; 85007; 85025; 87040; 87581; 87632; 87798; 96361; 96365; 96366; 96375; 96376; 99291; C9803; G0390; J2405; J2543; Q9967; U0003; U0005

== ENCOUNTER → 2022-11-07 17:33 | Outpatient (CLI) | payer OTHER, SELFPAY ==
[2022-11-07 17:48] LABS: Microscopic, Urine URINE MICROSCOPIC (MICROSCOPIC)
[2022-11-07 18:03] LABS: Appearance,Urine CLEAR (Clear); Color,Urine DK YELLOW (Yellow); Leukocyte Esterase,Urine Negative (Negative); Nitrate,Urine POSITIVE (Negative); Protein,Urine 2+ (Negative)
[2022-11-07 18:05] LABS: Blood, Urine Negative (Negative); Glucose,Urine (UA) Negative (Negative); Ketones,Urine Negative (Negative); Specific Gravity, Urine 1.025 (1.005-1.030)
[2022-11-07 18:07] LABS: Bilirubin,Urine 1+ (Negative)
[2022-11-07 18:35] LABS: Bacteria,Urine Trace /lpf; Squamous Epithelial Cell,Urine Occasional #/hpf (0-5); WBC,Urine Occasional #/hpf (0-3)
[2022-11-07 18:36] LABS: Calcium Oxalate Crystals,Urine 4+ /lpf
== END ==
PROVIDERS: PCP Family Medicine; Visit Provider Family Medicine
DX: R30.0 Dysuria (principal); B96.1 Klebsiella pneumoniae [K. pneumoniae] as the cause of diseases classified elsewhere; B96.81 Helicobacter pylori [H. pylori] as the cause of diseases classified elsewhere
CPT/HCPCS: 81001; 87086; 87088; 87186

== ENCOUNTER → 2022-11-08 15:33 | Outpatient (CLI) | payer OTHER, SELFPAY ==
[2022-11-08 15:57] LABS: Basophils # 0.1 K/mm3 (0-0.2); Basophils % 0.7 % (0.1-2.0); Eosinophils # 0.1 K/mm3 (0.0-0.4); Eosinophils % 0.4 % (0.1-12.0); Hematocrit 30.1 % (37.0-47.0); Hemoglobin 9.5 g/dL (12.2-16.2); Lymphocytes # 2.7 K/mm3 (0.7-4.5); Lymphocytes % 23.7 % (10-50); Mean Corpuscular HGB Conc 31.4 g/dL (31.8-35.4); Mean Corpuscular Hemoglobin 29.3 pg (27.0-31.2); Mean Corpuscular Volume 93.1 fl (81-99); Mean Platelet Volume 9.2 fl (7.4-10.4); Monocytes # 0.7 K/mm3 (0.1-1.0); Monocytes % 6.3 % (1.7-9.3); Neutrophils % 68.9 % (37.0-80.0); Red Blood Count 3.24 M/mm3 (4.20-5.40); Red Cell Distribution Width 16.3 % (11.5-17.5); White Blood Count 11.6 K/mm3 (4.8-10.8)
[2022-11-08 15:59] LABS: Platelet Count 1034 K/mm3 (142-424)
[2022-11-08 18:30] LABS: Alanine Aminotransferase 50 U/L (12-78); Albumin Level 2.9 g/dl (3.5-5.0); Albumin/Globulin Ratio 0.9 (1.1-1.8); Alkaline Phosphatase 393 U/L (38-126); Aspartate Amino Transferase 47 U/L (14-36); Bilirubin,Total 0.6 mg/dl (0.2-1.3); Blood Urea Nitrogen 7 mg/dl (7-17); Calcium 8.8 mg/dl (8.4-10.2); Carbon Dioxide 24 mmol/L (22.0-30.0); Chloride 94 mmol/L (98-107); Estimated Glomerular Filt Rate 227 ml/min (>60); GFR (African American) 275 ML/MIN (>60); Globulin 3.3 g/dL (1.3-3.2); Glucose 108 mg/dl (74-100); Sodium 128 mmol/L (136-145); Total Protein,Serum 6.2 g/dl (6.3-8.2)
== END ==
PROVIDERS: PCP Family Medicine; Visit Provider Family Medicine
DX: R30.0 Dysuria (principal)
CPT/HCPCS: 80053; 85025

== ENCOUNTER 2024-03-20 16:44 | Outpatient (CLI) | payer OTHER, SELFPAY ==
[2024-03-20 16:58] LABS: Basophils # 0.1 K/mm3 (0-0.2); Basophils % 0.8 % (0.1-2.0); Eosinophils # 0.1 K/mm3 (0.0-0.4); Hematocrit 43.8 % (37.0-47.0); Hemoglobin 14.5 g/dL (12.2-16.2); Lymphocytes # 2.8 K/mm3 (0.7-4.5); Lymphocytes % 45.4 % (10-50); Mean Corpuscular Volume 99.8 fl (81-99); Mean Platelet Volume 10.6 fl (7.4-10.4); Monocytes # 0.3 K/mm3 (0.1-1.0); Monocytes % 4.8 % (1.7-9.3); Neutrophils # 2.9 K/mm3 (1.8-7.8); Platelet Count 287 K/mm3 (142-424); Red Blood Count 4.39 M/mm3 (4.20-5.40); White Blood Count 6.3 K/mm3 (4.8-10.8)
[2024-03-20 17:53] LABS: Alanine Aminotransferase 64 U/L (12-78); Albumin Level 4.5 g/dl (3.5-5.0); Albumin/Globulin Ratio 1.3 (1.1-1.8); Alkaline Phosphatase 149 U/L (38-126); Aspartate Amino Transferase 46 U/L (14-36); Bilirubin,Total 0.6 mg/dl (0.2-1.3); Blood Urea Nitrogen 15 mg/dl (7-17); Calcium 9.9 mg/dl (8.4-10.2); Carbon Dioxide 21 mmol/L (22.0-30.0); Chloride 110 mmol/L (98-107); Chol/HDL Ratio 4.2 (1-3.5); Cholesterol 202 mg/dl (140-200); Estimated Glomerular Filt Rate 73 ml/min (>60); GFR (African American) 88 ML/MIN (>60); Globulin 3.4 g/dL (1.3-3.2); Glucose 84 mg/dl (74-100); HDL Cholesterol 48 mg/dl (40-60); Sodium 140 mmol/L (136-145); Total Protein,Serum 7.9 g/dl (6.3-8.2); Triglycerides 191 mg/dl (30-150); VLDL Cholesterol 38 mg/dL (0-40)
[2024-03-20 18:04] LABS: Direct LDL Cholesterol 99.79 mg/dL (100-129)
[2024-03-20 18:10] LABS: T4 (Thyroxine) 5.9 ug/dl (5.53-11.0)
== END 2024-03-20 23:59 | disposition home or self-care (01) ==
LOC: LAB.DROPOF 16:45
PROVIDERS: PCP Family Medicine; Visit Provider Family Medicine
DX: Z00.00 Encounter for general adult medical examination without abnormal findings (principal)
CPT/HCPCS: 80050; 80053; 80061; 84436; 84443; 85025

== ENCOUNTER 2024-10-18 09:53 | Outpatient (CLI) | payer OTHER, SELFPAY ==
[2024-10-18 16:57] LABS: Basophils # 0.1 K/mm3 (0-0.2); Basophils % 1.4 % (0.1-2.0); Eosinophils # 0.2 K/mm3 (0.0-0.4); Eosinophils % 2.1 % (0.1-12.0); Hematocrit 39.6 % (37.0-47.0); Hemoglobin 13.3 g/dL (12.2-16.2); Lymphocytes # 2.6 K/mm3 (0.7-4.5); Lymphocytes % 35.7 % (10-50); Mean Corpuscular HGB Conc 33.6 g/dL (31.8-35.4); Mean Corpuscular Hemoglobin 31.2 pg (27.0-31.2); Mean Platelet Volume 10.8 fl (7.4-10.4); Monocytes # 0.4 K/mm3 (0.1-1.0); Monocytes % 5.9 % (1.7-9.3); Neutrophils % 54.6 % (37.0-80.0); Platelet Count 325 K/mm3 (142-424); Red Blood Count 4.26 M/mm3 (4.20-5.40); White Blood Count 7.2 K/mm3 (4.8-10.8)
[2024-10-18 18:01] LABS: Alanine Aminotransferase 43 U/L (12-78); Albumin Level 4.7 g/dl (3.5-5.0); Albumin/Globulin Ratio 1.8 (1.1-1.8); Alkaline Phosphatase 106 U/L (38-126); Anion Gap 15.9 mEq/L (5-15); Aspartate Amino Transferase 36 U/L (14-36); Bilirubin,Total 0.6 mg/dl (0.2-1.3); Blood Urea Nitrogen 23 mg/dl (7-17); Carbon Dioxide 15 mmol/L (22.0-30.0); Chloride 109 mmol/L (98-107); Estimated Glomerular Filt Rate 46 ml/min (>60); GFR (African American) 55 ML/MIN (>60); Globulin 2.6 g/dL (1.3-3.2); Glucose 89 mg/dl (74-100); Potassium 4.9 mmoL/L (3.5-5.1); Sodium 135 mmol/L (136-145); Total Protein,Serum 7.3 g/dl (6.3-8.2)
[2024-10-18 18:30] LABS: Thyroid Stimulating Hormone 3.71 uIU/mL (0.465-4.68)
[2024-10-18 22:16] LABS: HIV Combo NEGATIVE (Negative)
[2024-10-18 22:23] LABS: Hepatitis C Ab Qual. W/ RFX NEGATIVE (Negative)
== END 2024-10-18 23:59 | disposition home or self-care (01) ==
LOC: LAB.DROPOF 10-21 09:55
PROVIDERS: PCP Family Medicine; Visit Provider Family Medicine
DX: Z00.00 Encounter for general adult medical examination without abnormal findings (principal); Z11.59 Encounter for screening for other viral diseases; Z11.4 Encounter for screening for human immunodeficiency virus [HIV]
CPT/HCPCS: 80053; 84443; 85025; 86803; 87389

== ENCOUNTER 2024-11-26 17:52 | Outpatient (CLI) | payer OTHER, SELFPAY ==
[2024-11-26 19:35] LABS: Blood Urea Nitrogen 13 mg/dl (7-17); Calcium 9.4 mg/dl (8.4-10.2); Carbon Dioxide 18 mmol/L (22.0-30.0); Chloride 105 mmol/L (98-107); Estimated Glomerular Filt Rate 46 ml/min (>60); GFR (African American) 55 ML/MIN (>60); Glucose 98 mg/dl (74-100); Sodium 136 mmol/L (136-145)
== END 2024-11-26 23:59 | disposition home or self-care (01) ==
LOC: LAB 17:52
PROVIDERS: PCP Family Medicine; Visit Provider Family Medicine
DX: N28.9 Disorder of kidney and ureter, unspecified (principal)
CPT/HCPCS: 80048